=== PATIENT | male | born 1980 | race Caucasian/White ===

== ENCOUNTER 2017-03-15 08:49 | Emergency (ER) | payer SELFPAY ==
[~2017-03-15] VITALS: Ht 182.9 cm; Wt 72.6 kg
[2017-03-15] MEDS ORDERED: NORCO 5-325 TA1 EACH PO (09:43)
[2017-03-15] MEDS ORDERED: PENICILLIN V P500 MG PO (09:43)
== END 2017-03-15 10:29 | disposition home or self-care (01) ==
LOC: ED 08:49
PROC: 0C9WXZ0 Drainage of Upper Tooth, External Approach, Single (ICD-10-PCS; principal; 2017-03-15)
DX: J01.00 Acute maxillary sinusitis, unspecified (principal); K04.7 Periapical abscess without sinus; F17.200 Nicotine dependence, unspecified, uncomplicated; Z89.021 Acquired absence of right finger(s); Z88.0 Allergy status to penicillin; Z88.1 Allergy status to other antibiotic agents
CPT/HCPCS: 41800; 99283

== ENCOUNTER 2017-07-20 13:28 | Emergency (ER) | payer OTHER ==
[~2017-07-20] VITALS: Ht 182.9 cm; Wt 72.6 kg
[~2017-07-20 13:28] MED LIST: NORCO 5-325 TA1 EACH PO; PENICILLIN V P500 MG PO
[2017-07-20] MEDS ORDERED: NORCO 10-325 T1 EACH PO (15:51)
== END 2017-07-20 16:15 | disposition home or self-care (01) ==
LOC: ED 13:28
PROC: 2W3DX1Z Immobilization of Left Lower Arm using Splint (ICD-10-PCS; principal; 2017-07-20)
DX: S62.337A Displaced fracture of neck of fifth metacarpal bone, left hand, initial encounter for closed fracture (principal); F17.200 Nicotine dependence, unspecified, uncomplicated; Z88.0 Allergy status to penicillin; Y08.02XA Assault by strike by baseball bat, initial encounter
CPT/HCPCS: 29125; 73080; 73110; 73130; 96374; 99283; J1885

== ENCOUNTER 2017-07-24 10:52 | Emergency (ER) | payer OTHER ==
[~2017-07-24] VITALS: Ht 182.9 cm; Wt 72.6 kg
[~2017-07-24 10:52] MED LIST changes: +NORCO 10-325 T1 EACH PO
[2017-07-24] MEDS ORDERED: NORCO 5-325 TA1 EACH PO (11:18)
== END 2017-07-24 11:26 | disposition home or self-care (01) ==
LOC: ED 10:52
DX: Z76.0 Encounter for issue of repeat prescription (principal); S62.337D Displaced fracture of neck of fifth metacarpal bone, left hand, subsequent encounter for fracture with routine healing; F17.200 Nicotine dependence, unspecified, uncomplicated; Z88.0 Allergy status to penicillin; Z88.1 Allergy status to other antibiotic agents
CPT/HCPCS: 99283